=== PATIENT | male | born 1950 | race Caucasian/White ===

== ENCOUNTER 2019-01-16 14:18 | Emergency (ER) | payer OTHER ==
[~2019-01-16] VITALS: Ht 177.8 cm; Wt 121.2 kg
[2019-01-16 14:23] VITALS: Ht 177.8 cm; Wt 121.2 kg
[2019-01-16 16:36] LABS: BASOPHIL % 0.1 % (0-2); PLATELET COUNT 244 x10^3mcL (130-400)
[2019-01-16 16:37] LABS: RED CELL DISTRIBUTION WIDTH 15.7 % (11.5-14.5)
[2019-01-16 16:48] LABS: CALCIUM 8.9 mg/dL (8.5-10.1); CARBON DIOXIDE 28.6 mmol/L (21-32); CHLORIDE SERUM 100 mmol/L (98-107); GFR1 > 60 mL/min; GLUCOSE SERUM 139 mg/dL (74-106); SODIUM SERUM 137 mmol/L (136-145)
[2019-01-16 17:01] LABS: ALKALINE PHOSPHATASE 61 U/L (46-116); ALT/SGPT 57 U/L (16-63); AST/SGOT 27 U/L (15-37); BILIRUBIN TOTAL 0.5 mg/dL (0.20-1.00); TOTAL PROTEIN, SERUM 7.7 g/dL (6.4-8.2)
[2019-01-16 18:11] VITALS: BP 162/74
== END 2019-01-16 18:11 | disposition home or self-care (01) ==
LOC: ED 14:18
PROVIDERS: Emergency Medicine
DX: R07.89 Other chest pain (principal); I10 Essential (primary) hypertension; E11.9 Type 2 diabetes mellitus without complications; Z88.0 Allergy status to penicillin
CPT/HCPCS: 36415; Q0092